=== PATIENT | male | born 1930 ===

== ENCOUNTER 2018-03-09 10:08 | Emergency (ER) | payer OTHER ==
[~2018-03-09] VITALS: Ht 167.6 cm; Wt 108.9 kg
[2018-03-09] MEDS ORDERED: COZAAR100 MG PO (10:19)
[2018-03-09] MEDS ORDERED: ZIRTEC PO (10:19)
[2018-03-09] MEDS ORDERED: AMARYL PO (10:20)
[2018-03-09] MEDS ORDERED: ATARAX25 MG PO (10:20)
[2018-03-09] MEDS ORDERED: LASIX40 MG PO (10:21)
== END 2018-03-09 18:36 | disposition home or self-care (01) ==
LOC: ER 10:08 → CPU-OBS 10:24 → ER 18:36
DX: R07.89 Other chest pain (principal)